=== PATIENT | female | born 1965 | race Caucasian/White ===

== ENCOUNTER → 2021-11-29 | Outpatient (CLI) | payer OTHER ==
--- NOTE | 2021-11-29 10:44 | RAD ---
EXAM: Bilateral knees, 2 views. HISTORY: Disability determination. Pain. COMPARISON: None. FINDINGS: Right knee: 2 views of the right knee are obtained. There is right lateral compartment spurring, subc hondral sclerosis and subchondral cyst formation. There is a small moderate right knee effusion. Ther e is no acute fracture, dislocation or subluxation. Left knee: 2 views of the left knee are obtained. There is no acute fracture, dislocation or subluxat ion. There is no joint effusion. There is enthesopathy along the superior patella. IMPRESSION: 1. Moderate lateral compartment osteoarthritis of the right knee and small to moderate right knee eff usion. 2. No acute osseous finding. Electronically signed by: Ester Hansen MD (11/29/2021 10:41 AM) [id number]
--- NOTE | 2021-11-29 10:48 | RAD ---
EXAM: Lumbar spine, 3 views. HISTORY: Pain. Disability determination. COMPARISON: None. FINDINGS: 3 views of the lumbar spine are obtained. There is a transitional lumbosacral segment. This is considered a lumbarized S1 segment for this dictation. Based on this numbering system, there is a 9 mm grade 1 anterolisthesis of L4 on L5 with associated pars interarticularis defects. There is 4 m m grade 1 anterolisthesis of L5 on S1. There are also suspected pars defects at this level. There is degenerative endplate remodeling with disc space narrowing and facet arthropathy at L4-L5 and L5-S1. IMPRESSION: 1. Grade 1 anterolisthesis with pars defects and degenerative change at L4-L5, and to a lesser extent , L5-S1. 2. Transitional lumbosacral segment, a normal variant. Electronically signed by: Ester Hansen MD (11/29/2021 10:45 AM) [id number]
== END ==
LOC: RAD 10:09
PROVIDERS: ATTEND Anesthesiology Pain Medicine
DX: Z02.71 Encounter for disability determination (principal); M17.11 Unilateral primary osteoarthritis, right knee; M25.461 Effusion, right knee; M76.892 Other specified enthesopathies of left lower limb, excluding foot; M47.817 Spondylosis without myelopathy or radiculopathy, lumbosacral region; M43.16 Spondylolisthesis, lumbar region; M48.061 Spinal stenosis, lumbar region without neurogenic claudication
CPT/HCPCS: 72100; 73560-50